=== PATIENT | male | born 1945 | race Two or more races ===

== ENCOUNTER 2020-12-27 08:20 | Outpatient (CLI) | payer OTHER | END 2020-12-27 08:26 | disposition home or self-care (01) | LOC: RAD 08:20 | PROVIDERS: ATTEND General Practice | DX: I70.0 Atherosclerosis of aorta (principal); R07.89 Other chest pain ==

== ENCOUNTER 2023-01-06 08:14 | Outpatient (CLI) | payer OTHER | END 2023-01-06 08:30 | disposition home or self-care (01) | LOC: RAD 08:14 | DX: R31.21 Asymptomatic microscopic hematuria (principal) ==

== ENCOUNTER 2023-02-07 13:40 | Outpatient (CLI) | payer OTHER | END 2023-02-07 13:47 | disposition home or self-care (01) | LOC: RAD 13:40 | PROVIDERS: ATTEND Urology | DX: R97.20 Elevated prostate specific antigen [PSA] (principal) ==